=== PATIENT | female | born 1945 | race Caucasian/White ===

== ENCOUNTER 2017-06-24 13:59 | Day surgery (SDC) | payer MEDICARE, OTHER ==
[~2017-06-24] VITALS: Ht 165.1 cm; Wt 71.7 kg
[~2017-06-24 13:59] MED LIST: DULO30 PO; GABA300 PO; HYDR1TAB94 PO; LEVSOD50 PO; LORA.5 PO; NADO20; NITR.4SL SL; PROM25 PO; TRAZ50 PO; ZOLP5 PO
== END 2017-06-24 15:53 | disposition home or self-care (01) ==
LOC: ORSCSDS 13:59
PROVIDERS: Internal Medicine Gastroenterology
PROC: 0DJ08ZZ Inspection of Upper Intestinal Tract, Via Natural or Artificial Opening Endoscopic (ICD-10-PCS; principal; 2017-06-24 15:30)
DX: K74.60 Unspecified cirrhosis of liver (principal); K29.70 Gastritis, unspecified, without bleeding; K22.2 Esophageal obstruction; Z86.19 Personal history of other infectious and parasitic diseases; E03.9 Hypothyroidism, unspecified; F41.8 Other specified anxiety disorders; F17.210 Nicotine dependence, cigarettes, uncomplicated; Z79.899 Other long term (current) drug therapy

== ENCOUNTER 2018-09-02 09:37 | Day surgery (SDC) | payer MEDICARE, OTHER ==
[~2018-09-02] VITALS: Ht 165.1 cm; Wt 70.3 kg
[~2018-09-02 09:37] MED LIST changes: +BELSOMRA10 MG PO; +CITA20 PO; -NADO20; +NADO20 PO; +TRAM50 PO
--- NOTE | 2018-09-02 10:15 | NUR ---
Ambulatory in Day Surgery with cane. Surgical site prepped with 2% Chlorhexidine cloth wipe. History, Chart, Medications and Allergies reviewed before start of procedure. Lungs clear T/O to Auscultation. Patient confirms NPO status and agrees with scheduled surgery. Pre-Op teaching done. Pt verbalizes understanding. Patient reports completing Chlorhexadine shower X2 prior to admission to hospital. Daughter at bedside, went home to let dog out, will return later.
--- NOTE | 2018-09-02 15:08 | NUR ---
PT ARRIVED TO UNIT FROM PACU VIA BED. PT APPEARS TO BE SLEEPING COMFORTABLY BUT AWAKENS EASILY. L KNEE DRESSING C/D/I-CONTINUOUS ICE THERAPY IN PLACE, CAP REFILL WNL. PT REPORTS 6/10 PAIN AT THIS TIME, BUT FALLS IMMEDIETLY BACK TO SLEEP AFTER ANSWERING SO WILL HOLD NARC PAIN MEDICATION AT THIS TIME.
--- NOTE | 2018-09-02 16:44 | NUR ---
ASSUMED CARE OF PT, C/O 9/10 PAIN ON L KNEE, MEDICATED WITH FENTANYL BY CONRAD AVILA WITH NO RELIEF, OXYCODONE GIVEN BUT CONTINUES TO HAVE 9-10/10 PAIN, IV DILAUDID GIVEN, PT PLACED ON CONT. OXIMETRY, PT AWAKE, ENCOURAGED TO COUGH AND DEEP BREATHE, CONT. TO MONITOR FOR ANY CHANGES.
--- NOTE | 2018-09-03 04:52 | NUR ---
SHIFT SUMMARY PT IS POD 1 LEFT TKA. 1 ASSIST W/ FWW AND GB FOR AMBULATION, PT HAS WALKED TO THE BATHROOM AND BACK A FEW TIMES DURING THE NIGHT. SHE RATES HER PAIN HIGHLY AT ABOUT 8/10 MOST OF THE TIME, BUT ALSO STATES THAT THIS KNEE PAIN IS MUCH BETTER THAN HER PREVIOUS RIGHT KNEE REPLACEMENT SOME YEARS BACK. SHE APPEARS GENERALLY COMFORTABLE AT REST. MEDICATED FOR PAIN PER EMAR WITH PO MEDS. DRESSING TO LEFT HIP C/D/I. WILL CTM UNTIL PASS TO NEXT SHIFT.
[2018-09-03 05:05] LABS: BASOPHILS ABSOLUTE AUTO 0.01 K/mm3 (0.00-0.23); BASOPHILS PERCENT AUTO 0 % (0-2); EOSINOPHILS PERCENT AUTO 0 % (0-6); Hematocrit 35.9 % (33.0-51.0); Hemoglobin 12.1 g/dL (11.5-16.0); IMMATURE GRAN ABSOLUTE AUTO 0.05 K/mm3 (0.00-0.10); IMMATURE GRAN PERCENT AUTO 0 % (0-1); LYMPHOCYTES ABSOLUTE AUTO 1.53 K/mm3 (0.84-5.20); LYMPHOCYTES PERCENT AUTO 14 % (21-46); MONOCYTES ABSOLUTE AUTO 0.84 K/mm3 (0.16-1.47); MONOCYTES PERCENT AUTO 7 % (4-13); Mean Corpuscular HGB 33.2 pg (26.0-34.0); Mean Corpuscular HGB Conc 33.7 g/dL (31.5-36.5); Mean Corpuscular Volume 99 fL (80-100); Mean Platelet Volume 11.6 fL (9.1-12.4); NEUTROPHILS ABSOLUTE AUTO 8.91 K/mm3 (1.96-9.15); NEUTROPHILS PERCENT AUTO 79 % (41-73); Platelet Count 176 K/mm3 (150-400); RDW Standard Deviation 46.9 fL (35.1-46.3); Red Blood Cell Count 3.64 M/mm3 (3.80-5.20); White Blood Cell Count 11.34 K/mm3 (4.00-11.30)
[2018-09-03 05:30] LABS: Anion Gap 5 mmol/L (6-16); Blood Urea Nitrogen 14 mg/dL (8-24); Bun/Creatinine Ratio 18.6 (12.0-20.0); CO2, Blood 26 mmol/L (21-32); Calcium, Blood 8.5 mg/dL (8.5-10.1); Chloride, Blood 107 mmol/L (98-108); Creatinine, Blood 0.75 mg/dL (0.40-1.00); Glomerular Filtration Rate >60 (60-); Glucose, Blood 125 mg/dL (70-99); Magnesium, Blood 1.9 mg/dL (1.6-2.4); Potassium, Blood 4.5 mmol/L (3.5-5.5); Sodium, Blood 138 mmol/L (136-145)
[2018-09-03] MEDS ORDERED: OXYC5 PO (14:24)
[2018-09-03] MEDS ORDERED: ASPI325EC PO (14:29)
--- NOTE | 2018-09-03 16:03 | NUR ---
DISCHARGE PT DISCHARGED HOME AT THIS TIME. PT EDUCATED ON AND RECEIVED PRINTED DC INSTRUCTIONS AND VERB AN UNDERSTANDING. IV DC'D. HARD RX FOR OXYCODONE GIVEN TO PT AND PT REPORTS SHE HAS ASA AT HOME. X2 AQUACEL DRESSINGS GIVEN TO PT. ALL PERSONAL BELONGINGS SENT WITH PT. PT ESCORTED OUT VIA W/C.
--- NOTE | 2018-09-04 10:00 | NUR ---
09/04/18 1000 Sherice Diane VERIFICATIONS: EDIT CHART.
== END 2018-09-03 15:40 | disposition home or self-care (01) ==
LOC: ORSCMMR 09:37 → ORD 11:00 → SURS 14:50 → ORSCMMR 09-03 15:40
PROVIDERS: Orthopaedic Surgery
PROC: 0SRD0J9 Replacement of Left Knee Joint with Synthetic Substitute, Cemented, Open Approach (ICD-10-PCS; principal; 2018-09-02 11:00)
DX: M17.12 Unilateral primary osteoarthritis, left knee (principal); I10 Essential (primary) hypertension; E03.9 Hypothyroidism, unspecified; B19.20 Unspecified viral hepatitis C without hepatic coma; K74.60 Unspecified cirrhosis of liver; Z79.899 Other long term (current) drug therapy
CPT/HCPCS: 36415; 73560-LT; 80048; 83735; 85025; 88300; 97110; 97116; 97161; C1713; C1776; J0171; J0690; J0735; J1100; J1170; J1885; J2250; J2405; J2704; J2710; J2795; J3010; J7120; Q0163

== ENCOUNTER 2018-10-29 13:25 | Day surgery (SDC) | payer MEDICARE, OTHER ==
[~2018-10-29] VITALS: Ht 165.1 cm; Wt 70.0 kg
[~2018-10-29 13:25] MED LIST changes: +ASPI325EC PO; +OXYC5 PO
--- NOTE | 2018-10-29 15:49 | NUR ---
10/29/18 1549 Dinah Francois PT. WITH SMALL CUT ON UPPERLEFT LIP, PER DR. CARY PROBABLY FROM THE BITE BLOCK.
== END 2018-10-29 16:18 | disposition home or self-care (01) ==
LOC: ORSCSDS 13:25
PROVIDERS: Internal Medicine Gastroenterology
PROC: 0DBK8ZX Excision of Ascending Colon, Via Natural or Artificial Opening Endoscopic, Diagnostic (ICD-10-PCS; principal; 2018-10-29 14:45)
PROC: 0D758ZZ Dilation of Esophagus, Via Natural or Artificial Opening Endoscopic (ICD-10-PCS; principal; 2018-10-29 14:45)
DX: R13.10 Dysphagia, unspecified (principal); K74.60 Unspecified cirrhosis of liver; K76.6 Portal hypertension; K31.89 Other diseases of stomach and duodenum; Z86.19 Personal history of other infectious and parasitic diseases; Z12.11 Encounter for screening for malignant neoplasm of colon; Z86.010 Personal history of colon polyps; D12.2 Benign neoplasm of ascending colon; K64.1 Second degree hemorrhoids; E03.9 Hypothyroidism, unspecified; I10 Essential (primary) hypertension; Z79.899 Other long term (current) drug therapy
CPT/HCPCS: 82105; 88305; J2704; J7120

== ENCOUNTER → 2020-05-05 | Outpatient (CLI) | payer MEDICARE, OTHER | LOC: LAB EV 12:59 | DX: G89.4 Chronic pain syndrome (principal) | CPT/HCPCS: G0480 ==

== ENCOUNTER → 2020-08-19 | Outpatient (CLI) | payer MEDICARE, OTHER | LOC: LAB SHORT 12:41 → PLD 12:41 | DX: L57.0 Actinic keratosis (principal) | CPT/HCPCS: 88305 ==

== ENCOUNTER 2021-08-22 05:58 | Day surgery (SDC) | payer MEDICARE, OTHER ==
[~2021-08-22] VITALS: Ht 165.1 cm; Wt 79.3 kg
[~2021-08-22 05:58] MED LIST changes: +FAMO20 PO; +MIRALAX17 GM PO; +Norco 5-325 Ta1 EACH PO; +PANT20 PO
--- NOTE | 2021-08-22 09:25 | NUR ---
MEDICATED WITH AN ADDITIONAL 25MCG OF FENTANLY PROIR TO TRANSFER OF CARE TO Fatou MARTINES. REPORT GIVEN TO HER AT 4500
--- NOTE | 2021-08-22 09:26 | NUR ---
STERI STRIP TO MIDDLE UPPER ABDOMEN INTACT WITH NO VISIBLE DRAINAGE, SWELLING, ERYTHEMA OR BRUISING NOTED TO SURGERY SITE NOTED. PATIENT TOLERATING SIPS OF WATER. PLAN TO GIVE ORAL ANALGESIC WHEN PATIENT HAS HAD MORE PO FLUID AND GRAMHN CRACKERS.
--- NOTE | 2021-08-22 09:45 | NUR ---
TOLERATING SIPS OF WATER, COFFEE AND CRACKERS WELL. CONTINUES TO COMPLAIN OF 8/10 SHARP PAIN TO SURGERY SITE IN MIDDLE UPPER ABDOMEN. DENIES NAUSEA. NO OTHER C/O REPORTED.
--- NOTE | 2021-08-22 10:22 | NUR ---
Discharge instructions reviewed with patient. Patient verbalizes understanding. Copy given to patient to take home. Up to dress independantly with daughter at bedside. Denies dizzyness, gait steady. Reports wanting to go home and states she is tolerating pain level.
== END 2021-08-22 10:28 | disposition home or self-care (01) ==
LOC: ORSCMMR 05:58 → ORD 07:30 → ORSCMMR 07:30
PROVIDERS: Surgery
PROC: 0WUF0JZ Supplement Abdominal Wall with Synthetic Substitute, Open Approach (ICD-10-PCS; principal; 2021-08-22 07:30)
DX: K43.6 Other and unspecified ventral hernia with obstruction, without gangrene (principal); I10 Essential (primary) hypertension; F17.210 Nicotine dependence, cigarettes, uncomplicated; B19.20 Unspecified viral hepatitis C without hepatic coma; K74.60 Unspecified cirrhosis of liver; Z79.899 Other long term (current) drug therapy
CPT/HCPCS: A9270; C1781; J0690; J1100; J2250; J2405; J2704; J2710; J3010; J7120

== ENCOUNTER → 2022-04-12 | Outpatient (CLI) | payer MEDICARE, OTHER ==
[2022-04-14 13:45] LABS: Candida species (DNA Probe) Negative (NEGATIVE); G. vaginalis (DNA Probe) Positive (NEGATIVE); T. vaginalis (DNA Probe) Negative (NEGATIVE)
[2022-04-15 01:10] LABS: CHLAMYDIA TRACHOMATIS, NAA Negative (Negative)
== END | disposition home or self-care (01) ==
LOC: LAB SHORT 14:15
PROVIDERS: Family Medicine
DX: N89.8 Other specified noninflammatory disorders of vagina (principal)
CPT/HCPCS: 87480; 87491; 87510; 87591; 87660

== ENCOUNTER → 2022-05-01 | Outpatient (CLI) | payer MEDICARE, OTHER ==
[2022-05-02 11:24] LABS: Candida species (DNA Probe) Negative (NEGATIVE); G. vaginalis (DNA Probe) Positive (NEGATIVE); T. vaginalis (DNA Probe) Negative (NEGATIVE)
== END | disposition home or self-care (01) ==
LOC: LAB SHORT 14:20 → LAB 14:20
PROVIDERS: Advanced Practice Midwife
DX: N76.0 Acute vaginitis (principal)
CPT/HCPCS: 87480; 87510; 87660

== ENCOUNTER 2022-06-28 07:24 | Day surgery (SDC) | payer MEDICARE, OTHER | END 2022-06-28 23:07 | disposition home or self-care (01) | LOC: CT 07:24 | DX: R07.9 Chest pain, unspecified (principal); I25.41 Coronary artery aneurysm; E03.9 Hypothyroidism, unspecified; E78.5 Hyperlipidemia, unspecified; I11.0 Hypertensive heart disease with heart failure; I50.32 Chronic diastolic (congestive) heart failure; F17.200 Nicotine dependence, unspecified, uncomplicated; B19.20 Unspecified viral hepatitis C without hepatic coma | CPT/HCPCS: 75571 ==

== ENCOUNTER → 2022-07-11 | Outpatient (CLI) | payer MEDICARE, OTHER | END | disposition home or self-care (01) | LOC: LAB 11:18 → LAB SHORT 11:18 | DX: L28.1 Prurigo nodularis (principal) | CPT/HCPCS: 88305; 88312 ==

== ENCOUNTER → 2023-11-27 | Outpatient (CLI) | payer MEDICARE, OTHER | LOC: LAB 17:54 → LAB SHORT 17:54 | DX: N39.0 Urinary tract infection, site not specified (principal) | CPT/HCPCS: 87086 ==

== ENCOUNTER → 2025-02-23 | Outpatient (CLI) | payer MEDICARE, OTHER ==
[2025-02-23 18:16] LABS: Bacterial Vaginosis PCR Negative (NEGATIVE); Candida Group, PCR NOT DETECTED (NOT DETECT)
[2025-02-23 18:56] LABS: Candida glabrata-krusei, PCR DETECTED (NOT DETECT)
== END ==
LOC: LAB 10:40 → LAB SHORT 10:40
PROVIDERS: Nurse Practitioner Family
DX: N39.0 Urinary tract infection, site not specified (principal); N89.8 Other specified noninflammatory disorders of vagina
CPT/HCPCS: 81515; 87086